=== PATIENT | female | born 1935 | race Asian ===

== ENCOUNTER 2018-08-05 09:45 | Inpatient (IN) | payer MEDICARE, MEDICAID ==
[~2018-08-05] VITALS: Ht 160 cm; Wt 47.2 kg
[~2018-08-05 09:45] MED LIST: ATORVASTATIN CA10 MG ORAL
[2018-08-05 10:08] VITALS: BP 154/76
--- NOTE | 2018-08-05 10:11 | NUR ---
ED Nurse Note:pt. was BIBA from [facility] s/p syncope and fall, has left chin 1cm laceration, A/Ox4 blood sent to labs ,given IV fluids
[2018-08-05 10:18] LABS: EOSINOPHILS % (AUTO) 1.1 % (0.0-3.0); HEMATOCRIT 40.6 % (37.0-47.0); HEMOGLOBIN 13.5 G/DL (12.0-16.0); LYMPHOCYTES % (AUTO) 34.2 % (20.0-45.0); MEAN CORPUSCULAR VOLUME 88 FL (80-99); MONOCYTES % (AUTO) 7.6 % (1.0-10.0); NEUTROPHILS % (AUTO) 56.2 % (45.0-75.0); PLATELET COUNT 206 K/UL (150-450); RED BLOOD COUNT 4.63 M/UL (4.20-5.40); RED CELL DISTRIBUTION WIDTH 11.7 % (11.6-14.8); WHITE BLOOD COUNT 5.3 K/UL (4.8-10.8)
[2018-08-05 10:36] LABS: ANION GAP 9 mmol/L (5-15); BLOOD UREA NITROGEN 17 mg/dL (7-18); CALCIUM 8.9 MG/DL (8.5-10.1); CARBON DIOXIDE 26 MMOL/L (21-32); CHLORIDE 106 MMOL/L (98-107); CREATININE 0.8 MG/DL (0.55-1.30); POTASSIUM 3.9 MMOL/L (3.5-5.1); SODIUM 141 MMOL/L (136-145)
[2018-08-05] MEDS ORDERED: Lidocaine 1% MPF 10mg/ml 5ml IM ONE (10:45)
[2018-08-05] MEDS ORDERED: Lidocaine 1% MPF 10mg/ml 5ml ONE (10:45)
[2018-08-05] MEDS ORDERED: Ampicillin/Sulbactam Sod 3 GM in NS 110 ML IVPB ONE (10:45)
[2018-08-05 10:53] LABS: ALANINE AMINOTRANSFERASE 19 U/L (12-78); ALBUMIN 3.4 G/DL (3.4-5.0); ALBUMIN/GLOBULIN RATIO 0.9 (1.0-2.7); ALKALINE PHOSPHATASE 56 U/L (46-116); ASPARTATE AMINO TRANSFERASE 22 U/L (15-37); BILIRUBIN,TOTAL 0.4 MG/DL (0.2-1.0); CKMB 1.9 NG/ML (0.0-3.6); CREATINE KINASE 71 U/L (26-308)
--- NOTE | 2018-08-05 10:55 | Diagnostic Imaging Report ---
Indication: Dyspnea Comparison: None A single view chest radiograph was obtained. Findings: No definite infiltrate or pulmonary vascular congestion identified. The heart is enlarged. The aorta is mildly enlarged consistent with atherosclerotic vascular disease. The bones are osteopenic. Impression: No acute disease
[2018-08-05] MEDS ORDERED: Bacitracin Oint UD TOPIC ONE (11:15)
[2018-08-05] MEDS ORDERED: METOPROLOL TART25 MG ORAL (11:16)
--- NOTE | 2018-08-05 11:16 | NUR ---
ED Nurse Note:urine was sent to labs, sutures were placed on chin by ER
[2018-08-05 11:26] LABS: APPEARANCE,URINE CLEAR; BILIRUBIN, URINE NEGATIVE (NEGATIVE); COLOR,URINE PALE YELLOW; GLUCOSE, URINE (UA) NEGATIVE (NEGATIVE); KETONES,URINE NEGATIVE (NEGATIVE); LEUKOCYTE ESTERASE ,URINE NEGATIVE (NEGATIVE); NITRITE,URINE NEGATIVE (NEGATIVE); PH,URINE 8 (4.5-8.0); PROTEIN,URINE NEGATIVE (NEGATIVE); UROBILINOGEN,URINE NORMAL MG/DL (0.0-1.0)
[2018-08-05] MEDS ORDERED: Mylanta II UD 30ml ORAL PRN (11:30)
[2018-08-05] MEDS ORDERED: LORazepam Inj 2mg/ml 1ml IV PRN (11:30)
[2018-08-05] MEDS ORDERED: Nitroglycerin Subl 0.4mg tab SL PRN (11:30)
[2018-08-05] MEDS ORDERED: Morphine Sulfate 2mg/ml Inj IVP PRN (11:30)
[2018-08-05] MEDS ORDERED: Miralax 17gm pkt ORAL PRN (11:30)
[2018-08-05] MEDS ORDERED: Albuterol/Ipratropium 3ml neb HHN PRN (11:30)
[2018-08-05 11:57] VITALS: BP 145/71
--- NOTE | 2018-08-05 13:22 | Consultation ---
History of Present Illness General Date patient seen: Aug 05, 2018 Chief Complaint: Syncope Present Illness HPI 82 year old female with hx of HTN, CVA, dementia was brought to ER after an episode of syncope. Apparently pt fell on her face and injured her lips and needed some sutures. In the field her BP was 190. She doesn't remember why she lost her consciousness. She is asymptomatic now. Allergies: Coded Allergies: No Known Allergies (Unverified , 03/14/14) Medication History Scheduled Amlodipine Besylate (Norvasc), 5 MG ORAL DAILY, (Reported) Atorvastatin Calcium* (Lipitor*), MG ORAL BEDTIME, (Reported) Clopidogrel Bisulfate* (Plavix*), 75 MG ORAL DAILY, (Reported) Dexlansoprazole (Dexilant), 60 MG ORAL DAILY, (Reported) Levocetirizine Dihydrochloride (Levocetirizine Dihydrochloride), 5 MG ORAL DAILY , (Reported) Levocetirizine Dihydrochloride (Levocetirizine Dihydrochloride), 5 MG ORAL DAILY , (Reported) Meclizine Hcl (Meclizine Hcl), 25 MG ORAL PRN, (Reported) Metoprolol Tartrate* (Metoprolol Tartrate*), 25 MG ORAL EVERY 12 HOURS, ( Reported) Vitamin D (Vitamin D3), 400 UNITS ORAL DAILY, (Reported) Miscellaneous Medications Calcium Carbonate/Vitamin D3 ([place] 500+D Tablet), 1 EACH PO, (Reported) Memantine HCl/Donepezil HCl (Namzaric 14 mg-10 mg Capsule), 1 EACH PO, (Reported ) P-Ephed Hcl/Triprolidine Hcl (Aprodine Tablet), 1 EACH PO, (Reported) Propranolol Hcl (Propranolol Hcl), 10 MG PO, (Reported) Patient History Healthcare decision maker Resuscitation status Advanced Directive on File Past Medical/Surgical History Past Medical/Surgical History: (1) History of hypertension (2) Advanced dementia Review of Systems All Other Systems: negative except mentioned in HPI Physical Exam General Appearance: WD/WN Lines, tubes and drains: peripheral, central line HEENT: normocephalic, anicteric Respiratory/Chest: chest wall non-tender, lungs clear Breasts: no masses Cardiovascular/Chest: normal peripheral pulses Abdomen: normal bowel sounds Last 24 Hour Vital Signs Date Time Temp Pulse Resp B/P (MAP) Pulse Ox O2 Delivery O2 Flow Rate FiO2 08/05/18 12:10 98.1 85 18 145/71 100 Room Air 08/05/18 11:57 98.1 85 18 145/71 100 Room Air 08/05/18 10:08 98.1 70 18 154/76 100 Room Air 08/05/18 09:43 98.1 79 18 173/76 100 Room Air Laboratory Tests Test 08/05/18 10:00 08/05/18 11:05 White Blood Count 5.3 K/UL (4.8-10.8) Red Blood Count 4.63 M/UL (4.20-5.40) Hemoglobin 13.5 G/DL (12.0-16.0) Hematocrit 40.6 % (37.0-47.0) Mean Corpuscular Volume 88 FL (80-99) Mean Corpuscular Hemoglobin 29.1 PG (27.0-31.0) Mean Corpuscular Hemoglobin Concent 33.2 G/DL (32.0-36.0) Red Cell Distribution Width 11.7 % (11.6-14.8) Platelet Count 206 K/UL (150-450) Mean Platelet Volume 5.5 FL (6.5-10.1) L Neutrophils (%) (Auto) 56.2 % (45.0-75.0) Lymphocytes (%) (Auto) 34.2 % (20.0-45.0) Monocytes (%) (Auto) 7.6 % (1.0-10.0) Eosinophils (%) (Auto) 1.1 % (0.0-3.0) Basophils (%) (Auto) 1.0 % (0.0-2.0) Sodium Level 141 MMOL/L (136-145) Potassium Level 3.9 MMOL/L (3.5-5.1) Chloride Level 106 MMOL/L (98-107) Carbon Dioxide Level 26 MMOL/L (21-32) Anion Gap 9 mmol/L (5-15) Blood Urea Nitrogen 17 mg/dL (7-18) Creatinine 0.8 MG/DL (0.55-1.30) Estimat Glomerular Filtration Rate mL/min (>60) Glucose Level 98 MG/DL (74-106) Calcium Level 8.9 MG/DL (8.5-10.1) Total Bilirubin 0.4 MG/DL (0.2-1.0) Aspartate Amino Transf (AST/SGOT) 22 U/L (15-37) Alanine Aminotransferase (ALT/SGPT) 19 U/L (12-78) Alkaline Phosphatase 56 U/L (46-116) Total Creatine Kinase 71 U/L (26-308) Creatine Kinase MB 1.9 NG/ML (0.0-3.6) Creatine Kinase MB Relative Index 2.6 Troponin I 0.000 ng/mL (0.000-0.056) Total Protein 7.0 G/DL (6.4-8.2) Albumin 3.4 G/DL (3.4-5.0) Globulin 3.6 g/dL Albumin/Globulin Ratio 0.9 (1.0-2.7) L Lipase 270 U/L (73-393) Urine Color Pale yellow Urine Appearance Clear Urine pH 8 (4.5-8.0) Urine Specific [place] 1.010 (1.005-1.035) Urine Protein Negative (NEGATIVE) Urine Glucose (UA) Negative (NEGATIVE) Urine Ketones Negative (NEGATIVE) Urine Blood 1+ (NEGATIVE) H Urine Nitrite Negative (NEGATIVE) Urine Bilirubin Negative (NEGATIVE) Urine Urobilinogen Normal MG/DL (0.0-1.0) Urine Leukocyte Esterase Negative (NEGATIVE) Urine RBC 0-2 /HPF (0 - 2) Urine WBC 0 /HPF (0 - 2) Urine Squamous Epithelial Cells None /LPF (NONE/OCC) Urine Bacteria Occasional /HPF (NONE) Height (Feet): 5 Height (Inches): 3.00 Weight (Pounds): 135 Medications Current Medications Medications (Trade) Dose Ordered Sig/[place] Route PRN Reason Start Time Stop Time Status Last Admin Dose Admin Acetaminophen (Tylenol) 650 mg Q4H PRN ORAL fever 08/05/18 11:30 09/04/18 11:29 Al Hydroxide/Mg Hydroxide (Mylanta II) 30 ml Q6H PRN ORAL dyspepsia 08/05/18 11:30 09/04/18 11:29 Albuterol/ Ipratropium (Albuterol/ Ipratropium) 3 ml Q4H PRN HHN Shortness of Breath 08/05/18 11:30 08/10/18 11:29 Clonidine HCl (Catapres Tab) 0.1 mg Q4H PRN ORAL SBP>160 08/05/18 11:30 09/04/18 11:29 Dextrose (Dextrose 50%) 25 ml Q30M PRN IV Hypoglycemia 08/05/18 11:30 09/04/18 11:29 Dextrose (Dextrose 50%) 50 ml Q30M PRN IV Hypoglycemia 08/05/18 11:30 09/04/18 11:29 Heparin Sodium (Porcine) (Heparin 5000 units/ml) 5,000 units EVERY 12 HOURS SUBQ 08/05/18 21:00 09/04/18 20:59 Lorazepam (Ativan 2mg/ml 1ml) 0.5 mg Q4H PRN IV For Anxiety 08/05/18 11:30 08/12/18 11:29 Morphine Sulfate (Morphine Sulfate) 1 mg Q4H PRN IVP For Pain 7-10 08/05/18 11:30 08/12/18 11:29 Nitroglycerin (Ntg) 0.4 mg Q5M X 3 DOSES PRN SL Prn Chest Pain 08/05/18 11:30 09/04/18 11:29 Ondansetron HCl (Zofran) 4 mg Q6H PRN IVP Nausea & Vomiting 08/05/18 11:30 09/04/18 11:29 Polyethylene Glycol (Miralax) 17 gm HSPRN PRN ORAL Constipation 08/05/18 11:30 09/04/18 11:29 Temazepam (Restoril) 15 mg HSPRN PRN ORAL Insomnia 08/05/18 11:30 08/12/18 11:29 Assessment/Plan Problem List: (1) Acute encephalopathy ICD Codes: G93.40 - Encephalopathy, unspecified SNOMED: 48452526, 168518541 (2) Syncope ICD Codes: R55 - Syncope and collapse SNOMED: 812500177 (3) History of hypertension ICD Codes: Z86.79 - Personal history of other diseases of the circulatory system SNOMED: 931388670 (4) Polypharmacy ICD Codes: Z79.899 - Other group home (current) drug therapy SNOMED: 943505345 (5) Dementia ICD Codes: F03.90 - Unspecified dementia without behavioral disturbance SNOMED: 78260912 Assessment/Plan telemetry monitoring echo cardiology to see pt/ot social service watch off antihypertensives Patel Harris MD Aug 05, 2018 13:22
--- NOTE | 2018-08-05 13:23 | NUR ---
ED Nurse Note:pt. was taken to tele floor, report given
--- NOTE | 2018-08-05 13:36 | NUR ---
NURSE NOTES: Pt admitted to the unit at 1320.. vitals were BP 143/60 HR 75 Temp 98.3 SpO2 96%, pt has a laceration to the chin with stitches that were placed in ED, bus driver/monitor on, IV flushed patent and intact, Head to toe assessment performed. Md already placed orders md notified that the pt is here.
--- NOTE | 2018-08-05 14:39 | Emergency Room Report ---
History of Present Illness General Chief Complaint: Syncope Source: Patient Present Illness HPI Patient presents after a syncopal episode Reports that she was at [employer] When she had an episode of lightheadedness And was found on the ground Patient has a laceration to the lower chin Denies any posterior neck pain Denies any chest pain or shortness of breath denies any focal weakness denies any change in medications Allergies: Coded Allergies: No Known Allergies (Unverified , 03/14/14) Patient History Past Medical History: see triage record Pertinent Family History: none Reviewed Nursing Documentation: PMH: Agreed; PSxH: Agreed Nursing Documentation-PMH Past Medical History: No History, Except For Hx Cardiac Problems: Yes Hx Hypertension: Yes Hx Cancer: No Hx Gastrointestinal Problems: No Hx Neurological Problems: No Review of Systems All Other Systems: negative except mentioned in HPI Physical Exam Vital Signs Date Time Temp Pulse Resp B/P (MAP) Pulse Ox O2 Delivery O2 Flow Rate FiO2 08/05/18 09:43 98.1 79 18 173/76 100 Room Air 08/05/18 14:21 2.0 Sp02 EP Interpretation: reviewed, normal General Appearance: no apparent distress Head: normocephalic, atraumatic Eyes: bilateral eye PERRL, bilateral eye EOMI ENT: hearing grossly normal, normal pharynx, TMs + canals normal, uvula midline , other - Approximately 2 cm laceration of lower chin Neck: full range of motion, supple, no meningismus, no bony tend Respiratory: lungs clear, normal breath sounds, no rhonchi, no respiratory distress, no retraction, no accessory muscle use Cardiovascular #1: normal peripheral pulses, regular rate, rhythm, no edema, no gallop, no JVD, no murmur Gastrointestinal: normal bowel sounds, non tender, soft, no mass, no organomegaly, non-distended, no guarding, no hernia, no pulsatile mass, no rebound Genitourinary: no CVA tenderness Musculoskeletal: normal inspection Neurologic: oriented x3, responsive, bus driver III-XII nml as tested, motor strength/ tone normal, sensory intact Psychiatric: mood/affect normal Skin: warm/dry, palpation normal, other - As above Lymphatic: normal inspection, no adenopathy Procedures Laceration/Wound Repair Laceration/Wound Repair : Consent: Verbal Wound Location: face Wound's Depth, Shape: into muscle Wound Length (cm): 2 Wound Explored: clean Irrigated w/ Saline (ccs): 200 Betadine Prep?: Yes Anesthesia: 1% Lidocaine Volume Anesthetic (ccs): 3 Wound Debrided: minimal Wound Repaired With: sutures Suture Size/Type: 6:0 Number of Sutures: 6 Layer Closure?: No Patient Tolerated: Well Complications: None Medical Decision Making Diagnostic Impression: Primary Impression: Syncope Additional Impression: Laceration ER Course Patient is a fairly complex patient with multiple differential to consideration including but not limited to cardiac cardiopulmonary and vascular emergencies Given the patient's presentation and trauma blood work and imaging is obtained Thus far patient remains awake and alert Given her comorbidities and findings will require further inpatient care Labs Test 08/05/18 10:00 08/05/18 11:05 White Blood Count 5.3 K/UL (4.8-10.8) Red Blood Count 4.63 M/UL (4.20-5.40) Hemoglobin 13.5 G/DL (12.0-16.0) Hematocrit 40.6 % (37.0-47.0) Mean Corpuscular Volume 88 FL (80-99) Mean Corpuscular Hemoglobin 29.1 PG (27.0-31.0) Mean Corpuscular Hemoglobin Concent 33.2 G/DL (32.0-36.0) Red Cell Distribution Width 11.7 % (11.6-14.8) Platelet Count 206 K/UL (150-450) Mean Platelet Volume 5.5 FL (6.5-10.1) Neutrophils (%) (Auto) 56.2 % (45.0-75.0) Lymphocytes (%) (Auto) 34.2 % (20.0-45.0) Monocytes (%) (Auto) 7.6 % (1.0-10.0) Eosinophils (%) (Auto) 1.1 % (0.0-3.0) Basophils (%) (Auto) 1.0 % (0.0-2.0) Sodium Level 141 MMOL/L (136-145) Potassium Level 3.9 MMOL/L (3.5-5.1) Chloride Level 106 MMOL/L (98-107) Carbon Dioxide Level 26 MMOL/L (21-32) Anion Gap 9 mmol/L (5-15) Blood Urea Nitrogen 17 mg/dL (7-18) Creatinine 0.8 MG/DL (0.55-1.30) Estimat Glomerular Filtration Rate mL/min (>60) Glucose Level 98 MG/DL (74-106) Calcium Level 8.9 MG/DL (8.5-10.1) Total Bilirubin 0.4 MG/DL (0.2-1.0) Aspartate Amino Transf (AST/SGOT) 22 U/L (15-37) Alanine Aminotransferase (ALT/SGPT) 19 U/L (12-78) Alkaline Phosphatase 56 U/L (46-116) Total Creatine Kinase 71 U/L (26-308) Creatine Kinase MB 1.9 NG/ML (0.0-3.6) Creatine Kinase MB Relative Index 2.6 Troponin I 0.000 ng/mL (0.000-0.056) Total Protein 7.0 G/DL (6.4-8.2) Albumin 3.4 G/DL (3.4-5.0) Globulin 3.6 g/dL Albumin/Globulin Ratio 0.9 (1.0-2.7) Lipase 270 U/L (73-393) Urine Color Pale yellow Urine Appearance Clear Urine pH 8 (4.5-8.0) Urine Specific [place] 1.010 (1.005-1.035) Urine Protein Negative (NEGATIVE) Urine Glucose (UA) Negative (NEGATIVE) Urine Ketones Negative (NEGATIVE) Urine Blood 1+ (NEGATIVE) Urine Nitrite Negative (NEGATIVE) Urine Bilirubin Negative (NEGATIVE) Urine Urobilinogen Normal MG/DL (0.0-1.0) Urine Leukocyte Esterase Negative (NEGATIVE) Urine RBC 0-2 /HPF (0 - 2) Urine WBC 0 /HPF (0 - 2) Urine Squamous Epithelial Cells None /LPF (NONE/OCC) Urine Bacteria Occasional /HPF (NONE) EKG Diagnostic Results Rate: normal Rhythm: NSR ST Segments: no acute changes Rhythm Strip Diag. Results EP Interpretation: yes Rate: 66 Rhythm: NSR, no PVC's, no ectopy Chest X-Ray Diagnostic Results Chest X-Ray Diagnostic Results : Chest X-Ray Ordered: Yes # of Views/Limited/Complete: 1 View Indication: Chest Pain EP Interpretation: Yes Interpretation: no consolidation, no effusion, no pneumothorax Impression: No acute disease Electronically Signed by: Segundo Sr DO Last Vital Signs Date Time Temp Pulse Resp B/P (MAP) Pulse Ox O2 Delivery O2 Flow Rate FiO2 08/05/18 14:21 Nasal Cannula 2.0 08/05/18 12:10 98.1 85 18 145/71 100 Status: improved Disposition: ADMITTED INPATIENT Condition: Serious Scripts Acetaminophen* (ACETAMINOPHEN 325MG TABLET*) 325 Mg Tablet 650 MG ORAL Q4H PRN for 30 Days, #30 TAB Prov: Kamari Walker MD 08/07/18 Referrals: NON PHYSICIAN (PCP) Segundo Sr DO Aug 05, 2018 14:39
[2018-08-05 16:00] VITALS: BP 136/59
[2018-08-05 18:00] VITALS: BP_SYST 136; BP_SYST 137; BP_DIAS 59; BP_DIAS 61
--- NOTE | 2018-08-05 18:56 | History & Physical ---
History and Physical History & Physicial Kamari Walker MD Aug 05, 2018 18:56
--- NOTE | 2018-08-05 19:45 | NUR ---
NURSE NOTES: Received report from Danielle Bowles RN. Pt is walking from the room to the nursing station with steady gait w/o distress in RA. SR in the monitor. Med bottles are at the bedside saying her just brought for her. Meds are taken away and sent to the pharm. Pt was informed that hospital would keep the med and give to pt when discharging. Pt verbalized understanding and agreed to it. Currently, pt is resting in the bed. IV site is asymptomatic. Safety measures are applied w/ bed alarm on, bed in lowest position with side rails up x2. Call light and side tables are w/in reach. Will follow plans of care.
[2018-08-05 20:00] VITALS: BP 171/82
[2018-08-05] MEDS ORDERED: VITAMIN D400 INTLU ORAL (20:23)
[2018-08-05] MEDS ORDERED: NAMZARIC 14 MG1 EACH PO (20:23)
[2018-08-05] MEDS ORDERED: APRODINE TABLE1 EACH PO (20:23)
[2018-08-05] MEDS ORDERED: PROPRANOLO20 MG/5 M1 PO (20:23)
[2018-08-05] MEDS ORDERED: DEXILANT60 MG ORAL (20:23)
[2018-08-05] MEDS ORDERED: OYSCO 500+D TA1 EAC1 PO (20:23)
[2018-08-05] MEDS ORDERED: NORVASC5 MG ORAL (20:23)
[2018-08-05] MEDS ORDERED: PLAVIX75 MG ORAL (20:23)
[2018-08-05] MEDS ORDERED: LEVOCETIRIZINE D5 MG ORAL (20:23)
[2018-08-05] MEDS ORDERED: MECLIZINE HCL25 M1 ORAL (20:23)
--- NOTE | 2018-08-05 20:30 | NUR ---
HAND-OFF: Report given to kena Sears.
--- NOTE | 2018-08-05 20:53 | NUR ---
NURSE NOTES: Home Med list updated in [facility]. [place] and left message to Dr. Harris at [phone] #[phone] regarding home med list updated. Also reported that pt has High BP of 171/82. Awaiting call back.
[2018-08-05] MEDS: Heparin 5000 units/ml inj SUBQ SCH (21:11)
--- NOTE | 2018-08-05 21:15 | History and Physical Report ---
DATE OF ADMISSION: 08/05/2018 CHIEF COMPLAINT: Syncopal episode with facial laceration. HISTORY OF PRESENT ILLNESS: This is a 82-year-old female with past medical history significant for hypertension, dyslipidemia, who presented to the emergency room after she had a fall. She said that she does not remember what happened. She suddenly fell on the floor with face down. She sustained an injury to the left side of face, required suture in the ER for laceration under the chin area. Shortly after initial evaluation in the emergency room, the patient was admitted to the hospital with syncope and dehydration. PAST MEDICAL HISTORY/PAST SURGICAL HISTORY: As above history of hypertension, dyslipidemia. MEDICATIONS: Medications at home is significant for atorvastatin as well as metoprolol. ALLERGIES: No known drug allergies. SOCIAL HISTORY: No smoking, alcohol, or drugs. FAMILY HISTORY: Noncontributory. REVIEW OF SYSTEMS: Mostly as above. Denies any dysuria, frequency, or hematuria. Complained about weakness and fatigue. Complain about shortness of breath. Denies any loss of consciousness. Denies any suicidal or homicidal ideation. Denies any double vision. Denies any bowel or urine incontinence. PHYSICAL EXAMINATION: VITAL SIGNS: On admission, temperature 98.1, pulse of 85, respirations 18, and blood pressure 145/71. GENERAL: The patient is awake and responsive, in no acute distress. HEENT: Head and neck examination, pupils are reactive to light. Extraocular movements are intact. Neck was supple. No JVD. Facial area has the laceration under the left chin area with suture was noted as well as ecchymosis on the eyebrow on the left side. HEART: S1, S2. Regular rhythm. No gallops. ABDOMEN: Soft, nondistended, and nontender. Positive bowel sounds. EXTREMITIES: No cyanosis, clubbing, edema. NEUROLOGIC: Cranial nerves II to XII grossly unremarkable. Motor strength is 5/5 in all extremities. Gait was not assessed due to patient's status. LABORATORY AND DIAGNOSTIC DATA: On admission from the ER, sodium 141, potassium 3.9, chloride 106, bicarbonate 26, BUN 17, creatinine 0.8, glucose 98, calcium is 8.9. Total bilirubin of 0.9, AST of 22, ALT of 19. First troponin 0.00. Lipase is 270. Urinalysis, +1 blood, otherwise no ketones or leukocytes. No nitrite. The patient had a chest x-ray, no acute cardiopulmonary disease. Carotid duplex is minimal disease. ASSESSMENT: 1. Syncopal episode. 2. History of hypertension. 3. Dehydration. 4. Dyslipidemia. 5. Status post fall with facial laceration. PLAN: Admit the patient to telemetry. Follow up with Dr. Harris as well cardiology consultation. Code status is Full Code. DVT prophylaxis with heparin subcutaneous. We will follow up with the echocardiogram and monitor orthostatic BP. PT evaluation. Discuss with the patient extensively regarding the care will be provided. Kamari Walker M.D. DR: Sarbjit JOB#: [id number] CC:
[2018-08-06] VITALS: BP 137/62
--- NOTE | 2018-08-06 03:15 | NUR ---
NURSE NOTES: Patient in bed asleep with no S/S of distress. Will continue to monitor
[2018-08-06 04:00] VITALS: BP 121/66
--- NOTE | 2018-08-06 05:30 | NUR ---
NURSE NOTES: Pt is sleeping w/o distress in RA, arousable by voice stimuli. Will continue to monitor. VSS.
[2018-08-06 06:39] LABS: BASOPHILS % (AUTO) 0.5 % (0.0-2.0); EOSINOPHILS % (AUTO) 0.8 % (0.0-3.0); HEMATOCRIT 38.9 % (37.0-47.0); HEMOGLOBIN 12.8 G/DL (12.0-16.0); LYMPHOCYTES % (AUTO) 28.1 % (20.0-45.0); MEAN CORPUSCULAR VOLUME 88 FL (80-99); MONOCYTES % (AUTO) 8.1 % (1.0-10.0); NEUTROPHILS % (AUTO) 62.4 % (45.0-75.0); PLATELET COUNT 209 K/UL (150-450); RED BLOOD COUNT 4.41 M/UL (4.20-5.40); RED CELL DISTRIBUTION WIDTH 11.7 % (11.6-14.8); WHITE BLOOD COUNT 6.9 K/UL (4.8-10.8)
[2018-08-06 07:06] LABS: ALANINE AMINOTRANSFERASE 17 U/L (12-78); ALBUMIN 3.1 G/DL (3.4-5.0); ALBUMIN/GLOBULIN RATIO 0.9 (1.0-2.7); ALKALINE PHOSPHATASE 54 U/L (46-116); ANION GAP 7 mmol/L (5-15); ASPARTATE AMINO TRANSFERASE 19 U/L (15-37); BILIRUBIN,TOTAL 0.5 MG/DL (0.2-1.0); BLOOD UREA NITROGEN 24 mg/dL (7-18); CALCIUM 8.9 MG/DL (8.5-10.1); CARBON DIOXIDE 28 MMOL/L (21-32); CHLORIDE 108 MMOL/L (98-107); CHOLESTEROL 146 MG/DL (< 200); CREATININE 0.8 MG/DL (0.55-1.30); HDL CHOLESTEROL 71 MG/DL (40-60); POTASSIUM 3.7 MMOL/L (3.5-5.1); SODIUM 143 MMOL/L (136-145); TRIGLYCERIDES 60 MG/DL (30-150)
--- NOTE | 2018-08-06 07:15 | NUR ---
HAND-OFF: Report given to Wilbur Hrary RN.
--- NOTE | 2018-08-06 07:54 | NUR ---
NURSE NOTES: Pt laying in bed in low position in supine position, eyes are closed and the pt is breathing appears to be sleeping, normal Orientation is 4, [place] and hebrew speaking, IV site intact and patent, pt ambulates to restroom with steady gait, call light at bedside, no s/s of distress or sob noted, pt denies pain and chin pain. will speak to Md regarding the pt history of hypertension and corresponding meds
[2018-08-06 08:00] VITALS: BP 111/54
[2018-08-06] MEDS: Heparin 5000 units/ml inj SUBQ SCH ×2 (09:57→21:08)
--- NOTE | 2018-08-06 11:47 | NUR ---
RD ASSESSMENT & RECOMMENDATIONS SEE CARE ACTIVITY FOR COMPLETE ASSESSMENT DAILY ESTIMATED NEEDS: Needs based on cardiac 47kg 27-32 kcals/kg 7437-6699 total kcals 1-1.2 g protein/kg 47-56 g total protein 25-30 mL/kg 1100-8330 total fluid mLs NUTRITION DIAGNOSIS: Altered nutrition related lab values r/t clinical status as evdenced by elev BUN (24). CURRENT DIET: regular PO DIET RECOMMENDATIONS: Regular diet / texture as tolerated ADDITIONAL RECOMMENDATIONS: 1) Obtain a standing weight and Ht 2) Monitor po intake, need for snacks/ supplements 3) Monitor lytes daily, replete as needed
--- NOTE | 2018-08-06 11:48 | Pulmonology Progress Note ---
Assessment/Plan Problems: (1) Acute encephalopathy (2) Syncope (3) History of hypertension (4) Polypharmacy (5) Dementia Assessment/Plan telemetry monitoring echo cardiology to see pt/ot social service watch off antihypertensives Subjective ROS Limited/Unobtainable: No HEENT: Repors: no symptoms Respiratory: Reports: no symptoms Cardiovascular: Reports: no symptoms Allergies: Coded Allergies: No Known Allergies (Unverified , 03/14/14) Objective Last 24 Hour Vital Signs Date Time Temp Pulse Resp B/P (MAP) Pulse Ox O2 Delivery O2 Flow Rate FiO2 08/06/18 08:36 Nasal Cannula 2.0 08/06/18 08:00 98.3 64 18 111/54 (73) 99 08/06/18 04:00 98.1 62 18 121/66 (84) 99 08/06/18 03:57 63 08/06/18 00:00 97.6 87 20 137/62 (87) 98 08/05/18 23:59 80 08/05/18 21:04 171/82 08/05/18 21:00 Nasal Cannula 2.0 08/05/18 20:10 78 08/05/18 20:00 97.1 82 20 171/82 (111) 98 08/05/18 18:00 97.8 76 18 136/59 (84) 97 08/05/18 18:00 98.0 77 18 137/61 (86) 96 77 08/05/18 16:00 97.8 76 18 136/59 (84) 97 08/05/18 15:42 70 08/05/18 14:21 Nasal Cannula 2.0 08/05/18 12:10 98.1 85 18 145/71 100 Room Air 08/05/18 11:57 98.1 85 18 145/71 100 Room Air Intake and Output 08/05/18 08/06/18 19:00 07:00 Intake Total 500 ml Balance 500 ml Intake Oral 500 ml # Voids 3 2 # Bowel Movements 1 1 General Appearance: WD/WN HEENT: normocephalic, atraumatic Respiratory/Chest: chest wall non-tender, lungs clear Cardiovascular: normal peripheral pulses, normal rate, regular rhythm Abdomen: normal bowel sounds, soft, non tender Genitourinary: normal external genitalia Extremities: no cyanosis Neurologic/Psychiatric: casing cleaner II-XII grossly normal Laboratory Tests 08/06/18 05:30: White Blood Count 6.9, Red Blood Count 4.41, Hemoglobin 12.8, Hematocrit 38.9, Mean Corpuscular Volume 88, Mean Corpuscular Hemoglobin 29.1, Mean Corpuscular Hemoglobin Concent 33.0, Red Cell Distribution Width 11.7, Platelet Count 209, Mean Platelet Volume 5.6L, Neutrophils (%) (Auto) 62.4, Lymphocytes (%) (Auto) 28.1, Monocytes (%) (Auto) 8.1, Eosinophils (%) (Auto) 0.8, Basophils (%) (Auto ) 0.5, Prothrombin Time 10.1, Prothromb Time International Ratio 1.0, Activated Partial Thromboplast Time 28, Sodium Level 143, Potassium Level 3.7, Chloride Level 108H, Carbon Dioxide Level 28, Anion Gap 7, Blood Urea Nitrogen 24H, Creatinine 0.8, Estimat Glomerular Filtration Rate , Glucose Level 100, Calcium Level 8.9, Total Bilirubin 0.5, Aspartate Amino Transf (AST/SGOT) 19, Alanine Aminotransferase (ALT/SGPT) 17, Alkaline Phosphatase 54, Total Protein 6.7, Albumin 3.1L, Globulin 3.6, Albumin/Globulin Ratio 0.9L, Triglycerides Level 60 , Cholesterol Level 146, LDL Cholesterol 63, HDL Cholesterol 71H, Cholesterol/ HDL Ratio 2.1L, Thyroid Stimulating Hormone (TSH) 1.651 Current Medications Medications (Trade) Dose Ordered Sig/[place] Route PRN Reason Start Time Stop Time Status Last Admin Dose Admin Acetaminophen (Tylenol) 650 mg Q4H PRN ORAL fever 08/05/18 11:30 09/04/18 11:29 Al Hydroxide/Mg Hydroxide (Mylanta II) 30 ml Q6H PRN ORAL dyspepsia 08/05/18 11:30 09/04/18 11:29 Albuterol/ Ipratropium (Albuterol/ Ipratropium) 3 ml Q4H PRN HHN Shortness of Breath 08/05/18 11:30 08/10/18 11:29 Clonidine HCl (Catapres Tab) 0.1 mg Q4H PRN ORAL SBP>160 08/05/18 11:30 09/04/18 11:29 08/05/18 21:04 Dextrose (Dextrose 50%) 25 ml Q30M PRN IV Hypoglycemia 2/7/19 11:30 09/04/18 11:29 Dextrose (Dextrose 50%) 50 ml Q30M PRN IV Hypoglycemia 08/05/18 11:30 09/04/18 11:29 Heparin Sodium (Porcine) (Heparin 5000 units/ml) 5,000 units EVERY 12 HOURS SUBQ 08/05/18 21:00 09/04/18 20:59 08/05/18 21:11 Lorazepam (Ativan 2mg/ml 1ml) 0.5 mg Q4H PRN IV For Anxiety 08/05/18 11:30 08/12/18 11:29 Morphine Sulfate (Morphine Sulfate) 1 mg Q4H PRN IVP For Pain 7-10 08/05/18 11:30 08/12/18 11:29 Nitroglycerin (Ntg) 0.4 mg Q5M X 3 DOSES PRN SL Prn Chest Pain 08/05/18 11:30 09/04/18 11:29 Ondansetron HCl (Zofran) 4 mg Q6H PRN IVP Nausea & Vomiting 08/05/18 11:30 09/04/18 11:29 Polyethylene Glycol (Miralax) 17 gm HSPRN PRN ORAL Constipation 08/05/18 11:30 09/04/18 11:29 Temazepam (Restoril) 15 mg HSPRN PRN ORAL Insomnia 08/05/18 11:30 08/12/18 11:29 08/05/18 21:04 Patel Harris MD Aug 06, 2018 11:48
[2018-08-06 12:00] VITALS: BP 120/63
--- NOTE | 2018-08-06 12:34 | NUR ---
P.T Note: P.T evaluation completed. Pt currently functioning at baseline . Present functional status does not warrant skilled P.T service at this time. Encouraged patient OOB activities i.e ambulation as tolerated and avoid prolonged bed rest during stay. Pt verbalized understanding. Discussed with RN re: pt's current LOF. NO further P.T follow needed. Thank you for this referral.
[2018-08-06 16:00] VITALS: BP 130/62
--- NOTE | 2018-08-06 16:05 | Internal Med Progress Note ---
Subjective Physician Name Kamari Walker Attending Physician Kamari Walker MD Current Medications Medications (Trade) Dose Ordered Sig/[place] Route PRN Reason Start Time Stop Time Status Last Admin Dose Admin Acetaminophen (Tylenol) 650 mg Q4H PRN ORAL fever 08/05/18 11:30 09/04/18 11:29 Al Hydroxide/Mg Hydroxide (Mylanta II) 30 ml Q6H PRN ORAL dyspepsia 08/05/18 11:30 09/04/18 11:29 Albuterol/ Ipratropium (Albuterol/ Ipratropium) 3 ml Q4H PRN HHN Shortness of Breath 08/05/18 11:30 08/10/18 11:29 Atorvastatin Calcium (Lipitor) 20 mg BEDTIME ORAL 08/06/18 21:00 09/05/18 20:59 Clonidine HCl (Catapres Tab) 0.1 mg Q4H PRN ORAL SBP>160 08/05/18 11:30 09/04/18 11:29 08/05/18 21:04 Clopidogrel Bisulfate (Plavix) 75 mg DAILY ORAL 08/07/18 09:00 09/06/18 08:59 Dextrose (Dextrose 50%) 25 ml Q30M PRN IV Hypoglycemia 08/05/18 11:30 09/04/18 11:29 Dextrose (Dextrose 50%) 50 ml Q30M PRN IV Hypoglycemia 08/05/18 11:30 09/04/18 11:29 Heparin Sodium (Porcine) (Heparin 5000 units/ml) 5,000 units EVERY 12 HOURS SUBQ 08/05/18 21:00 09/04/18 20:59 08/05/18 21:11 Lorazepam (Ativan 2mg/ml 1ml) 0.5 mg Q4H PRN IV For Anxiety 08/05/18 11:30 08/12/18 11:29 Morphine Sulfate (Morphine Sulfate) 1 mg Q4H PRN IVP For Pain 7-10 08/05/18 11:30 08/12/18 11:29 Nitroglycerin (Ntg) 0.4 mg Q5M X 3 DOSES PRN SL Prn Chest Pain 08/05/18 11:30 09/04/18 11:29 Ondansetron HCl (Zofran) 4 mg Q6H PRN IVP Nausea & Vomiting 08/05/18 11:30 09/04/18 11:29 Polyethylene Glycol (Miralax) 17 gm HSPRN PRN ORAL Constipation 08/05/18 11:30 09/04/18 11:29 Temazepam (Restoril) 15 mg HSPRN PRN ORAL Insomnia 08/05/18 11:30 08/12/18 11:29 08/05/18 21:04 Allergies: Coded Allergies: No Known Allergies (Unverified , 03/14/14) Subjective awake, alert, responsive, feeling better, No CP or SOB. Objective Last Vital Signs Date Time Temp Pulse Resp B/P (MAP) Pulse Ox O2 Delivery O2 Flow Rate FiO2 08/06/18 12:00 97.6 76 18 120/63 (82) 96 08/06/18 08:36 Nasal Cannula 2.0 Laboratory Tests Test 08/06/18 05:30 White Blood Count 6.9 K/UL (4.8-10.8) Red Blood Count 4.41 M/UL (4.20-5.40) Hemoglobin 12.8 G/DL (12.0-16.0) Hematocrit 38.9 % (37.0-47.0) Mean Corpuscular Volume 88 FL (80-99) Mean Corpuscular Hemoglobin 29.1 PG (27.0-31.0) Mean Corpuscular Hemoglobin Concent 33.0 G/DL (32.0-36.0) Red Cell Distribution Width 11.7 % (11.6-14.8) Platelet Count 209 K/UL (150-450) Mean Platelet Volume 5.6 FL (6.5-10.1) L Neutrophils (%) (Auto) 62.4 % (45.0-75.0) Lymphocytes (%) (Auto) 28.1 % (20.0-45.0) Monocytes (%) (Auto) 8.1 % (1.0-10.0) Eosinophils (%) (Auto) 0.8 % (0.0-3.0) Basophils (%) (Auto) 0.5 % (0.0-2.0) Prothrombin Time 10.1 SEC (9.30-11.50) Prothromb Time International Ratio 1.0 (0.9-1.1) Activated Partial Thromboplast Time 28 SEC (23-33) Sodium Level 143 MMOL/L (136-145) Potassium Level 3.7 MMOL/L (3.5-5.1) Chloride Level 108 MMOL/L (98-107) H Carbon Dioxide Level 28 MMOL/L (21-32) Anion Gap 7 mmol/L (5-15) Blood Urea Nitrogen 24 mg/dL (7-18) H Creatinine 0.8 MG/DL (0.55-1.30) Estimat Glomerular Filtration Rate mL/min (>60) Glucose Level 100 MG/DL (74-106) Calcium Level 8.9 MG/DL (8.5-10.1) Total Bilirubin 0.5 MG/DL (0.2-1.0) Aspartate Amino Transf (AST/SGOT) 19 U/L (15-37) Alanine Aminotransferase (ALT/SGPT) 17 U/L (12-78) Alkaline Phosphatase 54 U/L (46-116) Total Protein 6.7 G/DL (6.4-8.2) Albumin 3.1 G/DL (3.4-5.0) L Globulin 3.6 g/dL Albumin/Globulin Ratio 0.9 (1.0-2.7) L Triglycerides Level 60 MG/DL (30-150) Cholesterol Level 146 MG/DL (< 200) LDL Cholesterol 63 mg/dL (<100) HDL Cholesterol 71 MG/DL (40-60) H Cholesterol/HDL Ratio 2.1 (3.3-4.4) L Thyroid Stimulating Hormone (TSH) 1.651 uiU/mL (0.358-3.740) Intake and Output 08/05/18 08/06/18 19:00 07:00 Intake Total 500 ml Balance 500 ml Intake Oral 500 ml # Voids 3 2 # Bowel Movements 1 1 Objective GENERAL: The patient is awake and responsive, in no acute distress. HEENT: Head and neck examination, pupils are reactive to light. Extraocular movements are intact. Neck was supple. No JVD. Facial area has the laceration under the left chin area with suture was noted as well as ecchymosis on the eyebrow on the left side. HEART: S1, S2. Regular rhythm. No gallops. ABDOMEN: Soft, nondistended, and nontender. Positive bowel sounds. EXTREMITIES: No cyanosis, clubbing, edema. NEUROLOGIC: Cranial nerves II to XII grossly unremarkable. Motor strength is 5/5 in all extremities. Assessment/Plan Assessment/Plan ASSESSMENT: 1. Syncopal episode. 2. History of hypertension. 3. Dehydration. 4. Dyslipidemia. 5. Status post fall with facial laceration. PLAN: In Telemetry. Follow up with Dr. Harris Code status is Full Code. DVT prophylaxis: heparin subcutaneous. PT evaluation. DC Planning for . Kamari Walker MD Aug 06, 2018 16:05
--- NOTE | 2018-08-06 16:19 | Cardiology Progress Note ---
Assessment/Plan Assessment/Plan syncope htn laceration demetia hyerlipidema when foudn bp was sig elevated so unlikey volume depletion or med induced but will document orthostatic will need echo telel neg ekg neg if echo neg she will need out pt fu for assisted tele eval [id number] Objective Last 24 Hour Vital Signs Date Time Temp Pulse Resp B/P (MAP) Pulse Ox O2 Delivery O2 Flow Rate FiO2 08/06/18 12:00 97.6 76 18 120/63 (82) 96 08/06/18 11:52 71 08/06/18 08:36 Nasal Cannula 2.0 08/06/18 08:00 98.3 64 18 111/54 (73) 99 08/06/18 07:56 60 08/06/18 04:00 98.1 62 18 121/66 (84) 99 08/06/18 03:57 63 08/06/18 00:00 97.6 87 20 137/62 (87) 98 08/05/18 23:59 80 08/05/18 21:04 171/82 08/05/18 21:00 Nasal Cannula 2.0 08/05/18 20:10 78 08/05/18 20:00 97.1 82 20 171/82 (111) 98 08/05/18 18:00 97.8 76 18 136/59 (84) 97 08/05/18 18:00 98.0 77 18 137/61 (86) 96 77 Intake and Output 08/05/18 08/06/18 19:00 07:00 Intake Total 500 ml Balance 500 ml Intake Oral 500 ml # Voids 3 2 # Bowel Movements 1 1 Laboratory Tests Test 08/06/18 05:30 White Blood Count 6.9 K/UL (4.8-10.8) Red Blood Count 4.41 M/UL (4.20-5.40) Hemoglobin 12.8 G/DL (12.0-16.0) Hematocrit 38.9 % (37.0-47.0) Mean Corpuscular Volume 88 FL (80-99) Mean Corpuscular Hemoglobin 29.1 PG (27.0-31.0) Mean Corpuscular Hemoglobin Concent 33.0 G/DL (32.0-36.0) Red Cell Distribution Width 11.7 % (11.6-14.8) Platelet Count 209 K/UL (150-450) Mean Platelet Volume 5.6 FL (6.5-10.1) L Neutrophils (%) (Auto) 62.4 % (45.0-75.0) Lymphocytes (%) (Auto) 28.1 % (20.0-45.0) Monocytes (%) (Auto) 8.1 % (1.0-10.0) Eosinophils (%) (Auto) 0.8 % (0.0-3.0) Basophils (%) (Auto) 0.5 % (0.0-2.0) Prothrombin Time 10.1 SEC (9.30-11.50) Prothromb Time International Ratio 1.0 (0.9-1.1) Activated Partial Thromboplast Time 28 SEC (23-33) Sodium Level 143 MMOL/L (136-145) Potassium Level 3.7 MMOL/L (3.5-5.1) Chloride Level 108 MMOL/L (98-107) H Carbon Dioxide Level 28 MMOL/L (21-32) Anion Gap 7 mmol/L (5-15) Blood Urea Nitrogen 24 mg/dL (7-18) H Creatinine 0.8 MG/DL (0.55-1.30) Estimat Glomerular Filtration Rate mL/min (>60) Glucose Level 100 MG/DL (74-106) Calcium Level 8.9 MG/DL (8.5-10.1) Total Bilirubin 0.5 MG/DL (0.2-1.0) Aspartate Amino Transf (AST/SGOT) 19 U/L (15-37) Alanine Aminotransferase (ALT/SGPT) 17 U/L (12-78) Alkaline Phosphatase 54 U/L (46-116) Total Protein 6.7 G/DL (6.4-8.2) Albumin 3.1 G/DL (3.4-5.0) L Globulin 3.6 g/dL Albumin/Globulin Ratio 0.9 (1.0-2.7) L Triglycerides Level 60 MG/DL (30-150) Cholesterol Level 146 MG/DL (< 200) LDL Cholesterol 63 mg/dL (<100) HDL Cholesterol 71 MG/DL (40-60) H Cholesterol/HDL Ratio 2.1 (3.3-4.4) L Thyroid Stimulating Hormone (TSH) 1.651 uiU/mL (0.358-3.740) Russ Mobley MD Aug 06, 2018 16:19
--- NOTE | 2018-08-06 19:45 | NUR ---
CASE MANAGEMENT: REVIEW 82/F BIBA FROM HOME CC: SYNCOPE SI: SYNCOPE . CHIN LACERATION S/P FALL T 97.5 HR 69 RR 18 BP 173/76 SAT 99% 2L/NC TROPONIN I 0.000 IS: NS IVF BOLUS X1 UNASYN IV X1 PATIENT ADMITTED TO TELEMETRY UNIT 08/25/2018 DCP: PATIENT IS FROM HOME
[2018-08-06 20:00] VITALS: BP 133/57
--- NOTE | 2018-08-06 20:20 | NUR ---
HAND-OFF: Report given to Jadiel Rn.
--- NOTE | 2018-08-06 20:21 | NUR ---
NURSE NOTES: Received report from Sully Bowles RN. Patient in AAO X4 mostly macedonian speaking with some panamanian noted. No complaints of acute pain at this time, kept clean ,dry and comfortable in bed. IV line intact and patent. Safety precaution in place; siderails x3 up, call light within reach, bed in lowest position, brakes and alarm on at all times. Patient is able to ambulate with minimal assist with BRP. Cardiac monitoring in place per protocol. Needs and wants anticipated and attended, will continue plan of care and monitor for any changes noted.
--- NOTE | 2018-08-06 20:30 | Progress Note ---
DATE: 08/06/2018 SUBJECTIVE: The patient is more alert and is able to provide history. She was worried about her heart condition. She stated that, that was the reason she fainted. The patient is not having any depressive symptoms. However, she is anxious and stated that she wants to leave as soon as possible. MENTAL STATUS EXAMINATION: Alert and oriented times self, place, and situation. Mood is anxious. Affect is constricted. Congruent with mood. Thought process is concrete. Thought content, no suicidal or homicidal ideations. ASSESSMENT: 1. Dementia by history. 2. Anxiety disorder. PLAN: 1. We will continue the Ativan. 2. The patient may not leave AMA. 3. We will provide the patient with supportive therapy and reality orientation. Kailey Santos M.D. DR: NICO JOB#: [id number] CC:
[2018-08-06] MEDS ORDERED: Atorvastatin 20mg tab ORAL SCH (21:00)
--- NOTE | 2018-08-06 23:00 | Consultation ---
DATE OF CONSULTATION: 08/05/2018 HISTORY OF PRESENT ILLNESS: The patient was seen yesterday, 08/05/2018. The patient was brought in after a syncopal episode and facial laceration on the lower left of her face. The patient is an 82-year-old female. She was confused and was not able to provide history in the ER. She did not know what was the date. She was agitated and per her family, she was more confused than her baseline. She has been taking Namenda and she was diagnosed with dementia in the past. She has been taking hypertension medication and statin. PAST PSYCHIATRIC HISTORY: Dementia and anxiety. PAST MEDICAL HISTORY: Includes hypertension and dyslipidemia. MEDICATIONS: Medications at home includes . ALLERGIES: No known drug allergies. SUBSTANCE ABUSE HISTORY: No history of illicit drug use or alcohol. Nonsmoker. MENTAL STATUS EXAMINATION: The patient was alert and oriented to self and place. Disoriented to date. Her mood was anxious. Affect was constricted. Congruent mood. Thought process is concrete. Thought content, no suicidal or homicidal ideations. ASSESSMENT: [place] I Acute encephalopathy due to toxin, dementia. [place] II Deferred. [place] III As above. [place] IV Low. [place] V 20. PLAN: 1. The patient will discontinue the Namenda and we will start the patient on low dose of Ativan. 2. The patient may not leave AMA. Kailey Santos M.D. DR: AILYN JOB#: [id number] CC:
[2018-08-07] VITALS: BP 126/61
--- NOTE | 2018-08-07 02:00 | Consultation ---
DATE OF CONSULTATION: 08/06/2018 CARDIOLOGY CONSULTATION CONSULTING PHYSICIAN: Russ Mobley M.D. REFERRING PHYSICIAN: Kamari Walker M.D. REASON FOR REFERRAL: Syncope. HISTORY OF PRESENT ILLNESS: This is an elderly female, basically somewhat of a poor historian, a difficult historian. The patient presented to the emergency room because of a fall and I believe from what I understand talking with the patient that she was in [place] when she fell. Prevention Specialist run sheets were reviewed. They indicate that the patient was found on a bench in the [place], was alert and oriented, complaining of syncope about 10 minutes prior to their arrival. The patient was sitting on a bench, states that she felt funny and then fainted hitting her face on the bench in front of her. The patient had pain in her chin and did not feel dizzy at that time that she was found by the paramedics, but had a laceration on her lower lip. She denies any chest pain or shortness of breath, no nausea, vomiting, diarrhea, or recent illness to the paramedics and apparently did not have any positive orthostatic vitals according to the lead mechanical engineer run sheet. Her initial blood pressure by the time that she was found was 190/90 with heart rate of 74 and respirations of 18, and the patient eventually was transferred. The patient denies any chest pain. She does tell me that she is active, she walks around the complex where she resides and she really does not have any chest pain or shortness of breath with activity. She uses one pillow at night. She does not have any shortness of breath waking her up in the middle of the night, but at the time that this happened with her passing out, she did have some shortness of breath. She has some sharp shooting chest pain that lasted only for about a second or so that she states does not occur when she walks around and she does not really have any palpitations. PAST MEDICAL HISTORY: Reportedly positive for history of glaucoma, which I found at [facility]. The patient reportedly has a history of osteoporosis and hyperlipidemia. She is on Plavix she says to thin her blood. She does have history of hypertension as well as dementia according to the records as well. ALLERGIES: She is not allergic to any medications. SOCIAL HISTORY: She does not smoke or drink alcoholic beverages. REVIEW OF SYSTEMS: GASTROINTESTINAL: She has had some nausea, but no vomiting. No black or bloody stools. GENITOURINARY: She does not have any discomfort on urination. CONSTITUTIONAL: Denies any fevers, chills or night sweats. NEUROLOGICAL: She does have some spinning sensation at times. PHYSICAL EXAMINATION: VITAL SIGNS: Her most recent blood pressure is 120/61, however, her blood pressure initially 170/70 when she presented to the emergency room and her heart rate has been anywhere between 64 and 82. GENERAL: Shows to be an elderly female with some evidence of laceration and sutures on her right lip. NECK: Supple. No jugular venous distention. LUNGS: Clear to auscultation and percussion. CARDIAC: S1 is normal. S2 is normal. Regular rate and rhythm. No heaves, thrills, or gallops noted. ABDOMEN: Soft and nontender. Positive bowel sounds. EXTREMITIES: There is no clubbing, cyanosis, or edema. LABORATORY AND DIAGNOSTIC DATA: White count 6.9, hemoglobin 12.8, and platelet count of 209,000. Sodium is 143, potassium 3.7, chloride , bicarbonate 28, BUN 24, creatinine of 0.8, glucose of 100, and calcium is 8.9. Liver function tests are normal. Albumin 3.1. LDL of 63 and HDL of 71. TSH of 1.65. Lipase of 270. INR is 1 and PTT of 28. Urinalysis shows 4+ blood, there are 0 to 2 RBCs. Her chest x-ray in the emergency room showed no acute disease and she did have carotid duplex that showed no disease in the common carotids, irregular plaque in the internal and external carotid arteries with degree of stenosis of 30% in the left internal carotid artery and 10% in external carotid artery. Vertebral arteries are patent without any disease. She had an EKG that shows normal sinus rhythm. No ST or T-wave abnormalities of any significant degree. ASSESSMENT AND PLAN: 1. Fall, possible syncope. 2. Hypertension. 3. Hyperlipidemia. 4. History of dementia. The patient was admitted to the hospital because of bouts of syncope. Initial blood pressure when found by paramedics was rather elevated which lead to syncope secondary to volume depletion less likely. Nevertheless, her telemetry data so far since presentation has been fairly unremarkable, strips are sinus rhythm. There is no sinus tachycardia at this time. She needs an echocardiogram to evaluate her left ventricular systolic function. Documentation of orthostatic vitals is important. She has otherwise no significant other abnormalities. She will follow up with primary care physician or lock expert in the future to further evaluate possibly with long-term monitoring devices. She needs to be careful that she does not take extra medications, although that is highly unlikely based on the initial blood pressure readings after when the patient was found. Russ Mobley M.D. DR: SRINIVAS JOB#: [id number] CC:
--- NOTE | 2018-08-07 03:15 | NUR ---
NURSE NOTES: Patient in bed asleep with no S/S of distress. Will continue to monitor
[2018-08-07 04:00] VITALS: BP 155/58
[2018-08-07 07:24] LABS: ANION GAP 8 mmol/L (5-15); BLOOD UREA NITROGEN 29 mg/dL (7-18); CALCIUM 9.1 MG/DL (8.5-10.1); CARBON DIOXIDE 27 MMOL/L (21-32); CHLORIDE 107 MMOL/L (98-107); CREATININE 0.8 MG/DL (0.55-1.30); POTASSIUM 3.6 MMOL/L (3.5-5.1); SODIUM 141 MMOL/L (136-145)
--- NOTE | 2018-08-07 07:29 | NUR ---
NURSE NOTES: Patient sitting up at edge of bed, feet dangling, bed in lowest position, call light within reach, on room air, no c/o pain, no SOB, in no apparent distress.
--- NOTE | 2018-08-07 07:38 | NUR ---
HAND-OFF: Report given to Dior Aguayo RN. Patient in stable condition, endorsed plan of care.
[2018-08-07 07:52] VITALS: BP 147/65
[2018-08-07] MEDS: Heparin 5000 units/ml inj SUBQ SCH (08:51)
[2018-08-07 12:00] VITALS: BP 117/56
--- NOTE | 2018-08-07 12:35 | Internal Med Progress Note ---
Subjective Physician Name Kamari Walker Attending Physician Kamari Walker MD Current Medications Medications (Trade) Dose Ordered Sig/[place] Route PRN Reason Start Time Stop Time Status Last Admin Dose Admin Acetaminophen (Tylenol) 650 mg Q4H PRN ORAL fever 08/05/18 11:30 09/04/18 11:29 Al Hydroxide/Mg Hydroxide (Mylanta II) 30 ml Q6H PRN ORAL dyspepsia 08/05/18 11:30 09/04/18 11:29 Albuterol/ Ipratropium (Albuterol/ Ipratropium) 3 ml Q4H PRN HHN Shortness of Breath 08/05/18 11:30 08/10/18 11:29 Atorvastatin Calcium (Lipitor) 20 mg BEDTIME ORAL 08/06/18 21:00 09/05/18 20:59 08/06/18 21:04 Clonidine HCl (Catapres Tab) 0.1 mg Q4H PRN ORAL SBP>160 08/05/18 11:30 09/04/18 11:29 08/05/18 21:04 Clopidogrel Bisulfate (Plavix) 75 mg DAILY ORAL 08/07/18 09:00 09/06/18 08:59 08/07/18 08:49 Dextrose (Dextrose 50%) 25 ml Q30M PRN IV Hypoglycemia 08/05/18 11:30 09/04/18 11:29 Dextrose (Dextrose 50%) 50 ml Q30M PRN IV Hypoglycemia 08/05/18 11:30 09/04/18 11:29 Heparin Sodium (Porcine) (Heparin 5000 units/ml) 5,000 units EVERY 12 HOURS SUBQ 08/05/18 21:00 09/04/18 20:59 08/07/18 08:51 Lorazepam (Ativan 2mg/ml 1ml) 0.5 mg Q4H PRN IV For Anxiety 08/05/18 11:30 08/12/18 11:29 Morphine Sulfate (Morphine Sulfate) 1 mg Q4H PRN IVP For Pain 7-10 08/05/18 11:30 08/12/18 11:29 Nitroglycerin (Ntg) 0.4 mg Q5M X 3 DOSES PRN SL Prn Chest Pain 08/05/18 11:30 09/04/18 11:29 Ondansetron HCl (Zofran) 4 mg Q6H PRN IVP Nausea & Vomiting 08/05/18 11:30 09/04/18 11:29 Polyethylene Glycol (Miralax) 17 gm HSPRN PRN ORAL Constipation 08/05/18 11:30 09/04/18 11:29 Temazepam (Restoril) 15 mg HSPRN PRN ORAL Insomnia 08/05/18 11:30 08/12/18 11:29 08/06/18 21:06 Allergies: Coded Allergies: No Known Allergies (Unverified , 03/14/14) Subjective awake, alert, responsive, feeling better, No CP or SOB, sitting up on chair eating. Objective Last Vital Signs Date Time Temp Pulse Resp B/P (MAP) Pulse Ox O2 Delivery O2 Flow Rate FiO2 08/07/18 12:30 65 64 66 08/07/18 12:00 98.1 18 117/56 (76) 100 08/07/18 09:00 Room Air 08/06/18 21:00 2.0 Laboratory Tests Test 08/07/18 05:54 Sodium Level 141 MMOL/L (136-145) Potassium Level 3.6 MMOL/L (3.5-5.1) Chloride Level 107 MMOL/L (98-107) Carbon Dioxide Level 27 MMOL/L (21-32) Anion Gap 8 mmol/L (5-15) Blood Urea Nitrogen 29 mg/dL (7-18) H Creatinine 0.8 MG/DL (0.55-1.30) Estimat Glomerular Filtration Rate mL/min (>60) Glucose Level 88 MG/DL (74-106) Calcium Level 9.1 MG/DL (8.5-10.1) Troponin I 0.015 ng/mL (0.000-0.056) Pro-B-Type Natriuretic Peptide 148 pg/mL (0-125) H Intake and Output 08/06/18 08/07/18 19:00 07:00 Intake Total 720 ml Balance 720 ml Intake Oral 720 ml # Voids 3 1 # Bowel Movements 1 Objective GENERAL: The patient is awake and responsive, in no acute distress. HEENT: Head and neck examination, pupils are reactive to light. Extraocular movements are intact. Neck was supple. No JVD. Facial area has the laceration under the left chin area with suture was noted as well as ecchymosis on the eyebrow on the left side. HEART: S1, S2. Regular rhythm. No gallops. ABDOMEN: Soft, nondistended, and nontender. Positive bowel sounds. EXTREMITIES: No cyanosis, clubbing, edema. NEUROLOGIC: Cranial nerves II to XII grossly unremarkable. Motor strength is 5/5 in all extremities. Assessment/Plan Assessment/Plan ASSESSMENT: 1. Syncopal episode. 2. History of hypertension. 3. Dehydration. 4. Dyslipidemia. 5. Status post fall with facial laceration. PLAN: In Telemetry. Follow up with Dr. Harris Code status is Full Code. DVT prophylaxis: heparin subcutaneous. DC home today. Kamari Walker MD Aug 07, 2018 12:35
[2018-08-07] MEDS ORDERED: ACETAMINOPHEN325 M1 ORAL (12:36)
--- NOTE | 2018-08-07 12:40 | Pulmonology Progress Note ---
Assessment/Plan Problems: (1) Acute encephalopathy (2) Syncope (3) History of hypertension (4) Polypharmacy (5) Dementia Assessment/Plan all reviewed telemetry monitoring echo cardiology to see pt/ot social service watch off antihypertensives Subjective ROS Limited/Unobtainable: No Constitutional: Reports: no symptoms HEENT: Repors: no symptoms Respiratory: Reports: no symptoms Allergies: Coded Allergies: No Known Allergies (Unverified , 03/14/14) Objective Last 24 Hour Vital Signs Date Time Temp Pulse Resp B/P (MAP) Pulse Ox O2 Delivery O2 Flow Rate FiO2 08/07/18 12:30 65 64 66 08/07/18 12:00 98.1 65 18 117/56 (76) 100 08/07/18 09:00 Room Air 08/07/18 08:00 76 08/07/18 07:52 98.2 74 18 147/65 (92) 96 08/07/18 04:00 61 08/07/18 04:00 97.5 62 17 155/58 (90) 96 08/07/18 00:00 72 08/07/18 00:00 98.3 69 17 126/61 (82) 96 08/06/18 21:00 Nasal Cannula 2.0 08/06/18 20:00 67 08/06/18 20:00 97.5 70 16 133/57 (82) 98 08/06/18 16:19 64 08/06/18 16:00 97.5 69 18 130/62 (84) 96 Intake and Output 08/06/18 08/07/18 19:00 07:00 Intake Total 720 ml Balance 720 ml Intake Oral 720 ml # Voids 3 1 # Bowel Movements 1 Objective General Appearance: WD/WN Lines, tubes and drains: peripheral HEENT: normocephalic, atraumatic Neck: non-tender, normal alignment Respiratory/Chest: chest wall non-tender, lungs clear Cardiovascular/Chest: normal peripheral pulses, normal rate Abdomen: normal bowel sounds Genitourinary/Rectal: normal genital exam Extremities: normal range of motion Skin Exam: normal pigmentation, other - edema Neurologic: serology teacher II-XII grossly normal Laboratory Tests 08/07/18 05:54: Sodium Level 141, Potassium Level 3.6, Chloride Level 107, Carbon Dioxide Level 27, Anion Gap 8, Blood Urea Nitrogen 29H, Creatinine 0.8, Estimat Glomerular Filtration Rate , Glucose Level 88, Calcium Level 9.1, Troponin I 0.015, Pro-B- Type Natriuretic Peptide 148H Current Medications Medications (Trade) Dose Ordered Sig/[place] Route PRN Reason Start Time Stop Time Status Last Admin Dose Admin Acetaminophen (Tylenol) 650 mg Q4H PRN ORAL fever 08/05/18 11:30 09/04/18 11:29 Al Hydroxide/Mg Hydroxide (Mylanta II) 30 ml Q6H PRN ORAL dyspepsia 08/05/18 11:30 09/04/18 11:29 Albuterol/ Ipratropium (Albuterol/ Ipratropium) 3 ml Q4H PRN HHN Shortness of Breath 08/05/18 11:30 08/10/18 11:29 Atorvastatin Calcium (Lipitor) 20 mg BEDTIME ORAL 08/06/18 21:00 09/05/18 20:59 08/06/18 21:04 Clonidine HCl (Catapres Tab) 0.1 mg Q4H PRN ORAL SBP>160 08/05/18 11:30 09/04/18 11:29 08/05/18 21:04 Clopidogrel Bisulfate (Plavix) 75 mg DAILY ORAL 08/07/18 09:00 09/06/18 08:59 08/07/18 08:49 Dextrose (Dextrose 50%) 25 ml Q30M PRN IV Hypoglycemia 08/05/18 11:30 09/04/18 11:29 Dextrose (Dextrose 50%) 50 ml Q30M PRN IV Hypoglycemia 08/05/18 11:30 09/04/18 11:29 Heparin Sodium (Porcine) (Heparin 5000 units/ml) 5,000 units EVERY 12 HOURS SUBQ 08/05/18 21:00 09/04/18 20:59 08/07/18 08:51 Lorazepam (Ativan 2mg/ml 1ml) 0.5 mg Q4H PRN IV For Anxiety 08/05/18 11:30 08/12/18 11:29 Morphine Sulfate (Morphine Sulfate) 1 mg Q4H PRN IVP For Pain 7-10 08/05/18 11:30 08/12/18 11:29 Nitroglycerin (Ntg) 0.4 mg Q5M X 3 DOSES PRN SL Prn Chest Pain 08/05/18 11:30 09/04/18 11:29 Ondansetron HCl (Zofran) 4 mg Q6H PRN IVP Nausea & Vomiting 08/05/18 11:30 09/04/18 11:29 Polyethylene Glycol (Miralax) 17 gm HSPRN PRN ORAL Constipation 08/05/18 11:30 09/04/18 11:29 Temazepam (Restoril) 15 mg HSPRN PRN ORAL Insomnia 08/05/18 11:30 08/12/18 11:29 08/06/18 21:06 Patel Harris MD Aug 07, 2018 12:40
--- NOTE | 2018-08-07 13:48 | NUR ---
NURSE NOTES: Patient discharged with , belongings given to patient. Patient wants to go home with by way of bus. I offered a taxi voucher, but patient refused. She prefers to go home via bus.
--- NOTE | 2018-08-07 22:25 | General Progress Note ---
Assessment/Plan Assessment/Plan 1. Dementia by history. 2. Anxiety disorder. PLAN: 1. We will continue the Ativan. 2. The patient may not leave AMA. 3. We will provide the patient with supportive therapy and reality orientation. Subjective Neurologic/Psychiatric: Reports: anxiety Allergies: Coded Allergies: No Known Allergies (Unverified , 03/14/14) Objective Last 24 Hour Vital Signs Date Time Temp Pulse Resp B/P (MAP) Pulse Ox O2 Delivery O2 Flow Rate FiO2 08/07/18 12:30 65 64 66 08/07/18 12:00 98.1 65 18 117/56 (76) 100 08/07/18 12:00 56 08/07/18 09:00 Room Air 08/07/18 08:00 76 08/07/18 07:52 98.2 74 18 147/65 (92) 96 08/07/18 04:00 61 08/07/18 04:00 97.5 62 17 155/58 (90) 96 08/07/18 00:00 72 08/07/18 00:00 98.3 69 17 126/61 (82) 96 Intake and Output 08/06/18 08/07/18 19:00 07:00 Intake Total 720 ml Balance 720 ml Intake Oral 720 ml # Voids 3 1 # Bowel Movements 1 Laboratory Tests 08/07/18 05:54: Sodium Level 141, Potassium Level 3.6, Chloride Level 107, Carbon Dioxide Level 27, Anion Gap 8, Blood Urea Nitrogen 29H, Creatinine 0.8, Estimat Glomerular Filtration Rate , Glucose Level 88, Calcium Level 9.1, Troponin I 0.015, Pro-B- Type Natriuretic Peptide 148H Height (Feet): 5 Height (Inches): 3.00 Weight (Pounds): 104 General Appearance: no apparent distress, alert Neurologic: oriented x 3, responsive, normal mood/affect Kailey Santos MD Aug 07, 2018 22:25
--- NOTE | 2018-08-08 13:10 | Cardiology Report ---
APPROVED REPORT EKG Measurement Heart [id number] Normal sinus rhythm Anterior infarct, age undetermined Abnormal ECG
--- NOTE | 2018-08-09 09:28 | Discharge Summary ---
Discharge Summary Discharge Summary _ DATE OF ADMISSION: 08/05/2018 DATE OF DISCHARGE: 08/07/2018 DISCHARGED BY: Dr. Walker REASON FOR ADMISSION: 82 years old female with past medical history significant for hypertension, dyslipidemia, presented to emergency department after she sustained a fall. Patient could not remember what happened prior to fall. She suddenly fell on the floor e face down and sustained an injury to the left side of the face. Patient required repair of the laceration in the emergency department under the chin area. Upon evaluation vital signs were stable. No leukocytosis, stable hemoglobin and hematocrit. Renal parameters and electrolytes were stable. Glucose 98. Stable LFT and lipase. Urinalysis revealed +1 blood, otherwise no evidence of UTI. First troponin negative. EKG revealed sinus rhythm, No acute ischemic changes., Chest x-ray revealed no acute cardiopulmonary disease. Patient was admitted for further management. CONSULTANTS: coal trimmer Dr. Mobley pulmonary Dr. Harris psychiatrist [facility]: Patient admitted to telemetry floor and received 1 L of fluid. All antihypertensive medications were on hold. Blood pressure was closely monitored. Cardiology and pulmonology closely followed. Carotid duplex revealed mild degree of stenosis. Lipid panel was stable. Echocardiogram demonstrated preserved ejection fraction of 60-65% with borderline mild left ventricular hypertrophy. No evidence of wall motion abnormality. Right ventricular systolic pressure of 34. No evidence of orthostatic vital sign changes. TSH was within normal limits. Antiplatelet therapy and statin were continued. DVT prophylaxis provided. Supplemental oxygen provided as needed to keep pulse oximetry above 92%. Pulse oximetry was stable on room air. Bowel regimen instituted. Supportive care provided. Fall precaution maintained. Patient was working with physical therapist. Second troponin was negative as well. EKG revealed no acute ischemic changes. Patient was ruled out for acute NH. No evidence of arrhythmia on telemetry. Maintainability Engineer recommended outpatient follow-up with primary care provider or coal trimmer for long-term monitoring device to monitor for arrhythmia.. Psychiatrist closely followed. Psychiatric medication regimen was optimized. Supportive therapy and reality orientation provided. Patient was stable for discharge home, at the bedside. FINAL DIAGNOSES: Status post fall with facial laceration requiring repair e Probable syncopal episode acute encephalopathy Dehydration Dyslipidemia History of hypertension Dementia Anxiety DISCHARGE MEDICATIONS: See Medication Reconciliation list. DISCHARGE INSTRUCTIONS: Patient was discharged home. Follow up with primary care provider in one week. I have been assigned to dictate discharge summary for this account. I was not involved in the patient's management. Elina Richardson NP Aug 09, 2018 09:28
--- NOTE | 2018-08-10 14:20 | Cardiology Report ---
APPROVED REPORT EKG Measurement Heart [id number] Normal sinus rhythm Normal ECG
== END 2018-08-07 14:01 | disposition home or self-care (01) | DRG 641 ==
LOC: EDBD 09:45 → EMR 10:15 → 2E 10:19 → EDBEDREQ 10:44
PROC: 0HQ1XZZ Repair Face Skin, External Approach (ICD-10-PCS; principal; 2018-08-05)
DX: E86.0 Dehydration (principal); G93.40 Encephalopathy, unspecified; R55 Syncope and collapse; I10 Essential (primary) hypertension; S01.81XA Laceration without foreign body of other part of head, initial encounter; W19.XXXA Unspecified fall, initial encounter; Y92.009 Unspecified place in unspecified non-institutional (private) residence as the place of occurrence of the external cause; Y92.22 Religious institution as the place of occurrence of the external cause; E78.5 Hyperlipidemia, unspecified; F03.90 Unspecified dementia, unspecified severity, without behavioral disturbance, psychotic disturbance, mood disturbance, and anxiety; F41.9 Anxiety disorder, unspecified; Z86.73 Personal history of transient ischemic attack (TIA), and cerebral infarction without residual deficits; H40.9 Unspecified glaucoma
CPT/HCPCS: 36415; 71045; 80048; 80053; 80061; 81003; 82550; 82553; 82962; 83690; 83880; 84443; 84484; 85025; 85610; 85730; 93005; 93306; 93880; 96365; 99285